=== PATIENT | male | born 1965 | race American Indian/Alaskan Native ===

== ENCOUNTER 2016-10-08 17:21 | Outpatient (CLI) | payer BC, OTHER | END 2016-10-08 17:30 | disposition short-term general hospital (02) | LOC: AMB 17:21 | DX: M54.2 Cervicalgia (principal); M25.561 Pain in right knee; R09.02 Hypoxemia; S00.03XA Contusion of scalp, initial encounter; V49.49XA Driver injured in collision with other motor vehicles in traffic accident, initial encounter; Y92.488 Other paved roadways as the place of occurrence of the external cause | CPT/HCPCS: A0425; A0427 ==

== ENCOUNTER 2016-10-08 17:52 | Emergency (ER) | payer BC, OTHER ==
[~2016-10-08] VITALS: Ht 175.3 cm; Wt 99.8 kg
[2016-10-08 18:41] LABS: PLATELET COUNT 166 K/uL (142-355)
[2016-10-08 18:46] LABS: POTASSIUM 3.9 mmol/L (3.6-5.2); SODIUM 137 mmol/L (136-145)
[2016-10-08 20:12] VITALS: BP 148/89; TEMP 97.6
== END 2016-10-08 20:14 | disposition home or self-care (01) ==
LOC: ED 17:52
PROVIDERS: Family Medicine
DX: S00.93XA Contusion of unspecified part of head, initial encounter (principal); S16.1XXA Strain of muscle, fascia and tendon at neck level, initial encounter; S70.11XA Contusion of right thigh, initial encounter; V43.52XA Car driver injured in collision with other type car in traffic accident, initial encounter
CPT/HCPCS: 36415; 80053; 81000; 85027; 99283

== ENCOUNTER 2016-10-28 06:47 | Outpatient (CLI) | payer BC, OTHER | END 2016-10-28 19:28 | disposition home or self-care (01) | LOC: MRI 06:47 | DX: M54.2 Cervicalgia (principal) ==

== ENCOUNTER 2018-08-24 08:48 | Outpatient (CLI) | payer BC | END 2018-08-24 19:21 | disposition home or self-care (01) | LOC: LABW 08:48 | DX: Z98.84 Bariatric surgery status (principal); R63.4 Abnormal weight loss; R13.12 Dysphagia, oropharyngeal phase | CPT/HCPCS: 36415; 82180; 82306; 82525; 82607; 82728; 82746; 83540; 83550; 84207; 84425; 84439; 84443; 84446; 84590; 84597; 84630 ==